=== PATIENT | female | born 1995 | race Caucasian/White ===

== ENCOUNTER 2017-05-23 09:11 | Inpatient (IN) | payer BC ==
[2017-05-23] VITALS (16 sets, daily range): BP systolic 109–144; BP diastolic 66–84; PULSE 61–96; TEMP 36.4–37.1; O2SAT 96–100; Ht 170.2 cm; Wt 68.0 kg
[~2017-05-23] VITALS: Ht 170.2 cm; Wt 68.0 kg
[~2017-05-23 09:11] MED LIST: CEFAZOLIN 2000 MG/60 ML D5W 60 ML IV SCH
[2017-05-23] MEDS ORDERED: BCPILLS PO (09:42)
--- NOTE | 2017-05-23 10:03 | EMERGENCY ROOM VISIT NOTE ---
History Report prepared by Jyoti: Tameka Banks Under the Supervision of: Dr. Nino Boss M.D. First contact with patient: 09:31 Chief Complaint: LEG PAIN,LEG INJURY Stated Complaint: LEG/FOOT PAIN History of Present Illness The patient is a 21 year old white female with no past medical history who presents to the ED with a cc of leg pain beginning one hour prior. Patient states that she was riding on her pretty poor she fell forward with her leg going forward and her left ankle and foot going backward. Patient denies striking her head. Patient denies any LOC. Patient denies any numbness tingling or weakness. Patient is not taking blood thinning medications. She does not have any other focal complaints of the head neck chest back abdomen arms or right lower extremity. Source of History: patient Onset: an hour ago Position: leg Quality: other (episode) Timing: constant Associated Symptoms: No LOC, No neck pain, No back pain, No weakness, No numbness Review of Systems See HPI for pertinent positives and negatives. A total of ten systems were reviewed and were otherwise negative. Past Medical & Surgical Medical Problems: (1) Closed fracture of distal end of left fibula and tibia Family History no pertinent family history stated. Social History Smoking Status: Never Smoker Smokeless Tobacco Use: No Alcohol Use: none Drug Use: none Marital Status: single Housing Status: lives with family Current/Historical Medications Scheduled Control Pills ( Control Pills), 1 TAB PO DAILY Allergies Coded Allergies: No Known Allergies (Unverified , 05/23/17) Physical Exam Vital Signs Date Time Temp Pulse Resp B/P (MAP) Pulse Ox O2 Delivery O2 Flow Rate FiO2 05/23/17 11:38 96 18 122/78 100 Nasal Cannula 2.0 05/23/17 11:12 37.0 67 20 128/71 100 Room Air 05/23/17 11:10 76 05/23/17 10:30 71 18 118/65 100 Room Air 05/23/17 09:20 36.8 92 18 109/92 98 Room Air Physical Exam GENERAL: Awake, alert, well-appearing, NAD HENT: Normocephalic, atraumatic. EYES: Normal conjunctiva. Sclera non-icteric. NECK: Supple. No nuchal rigidity. FROM. RESPIRATORY: CTAB, no rhonchi, wheezing, crackles CARDIAC: RRR, no MRG ABDOMEN: Soft, NTND, BS+ MSK: No chest wall TTP, noticeable left lower extremity edema with tenderness to palpation, neurovascularly intact distally to DP, SP, tibialis nerves, 2+ DP pulse intact of left lower extremity NEURO: GCS 15, CN 2-12 intact, moves all 4s on command SKIN: No rash or jaundice noted. Medical Decision & Procedures ER Provider Diagnostic Interpretation: Radiology results as stated below per my review and radiologist interpretation: LEFT TIBIA AND FIBULA 2 VIEWS; LEFT ANKLE 2 VIEWS CLINICAL HISTORY: Fall with left leg injury and deformity. FINDINGS: AP and lateral views of the left tibia and fibula with AP and lateral views of the left ankle are obtained. No prior studies are available for comparison at the time of dictation. The skeletal structures are well mineralized. There is a comminuted and distracted spiral fracture of the proximal fibular shaft. There is mild anterior and lateral distraction of the distal fragment which is offset by up to 7 mm. There is minimal overriding of the fragments. The distal fibula is intact. There is a comminuted and distracted spiral fracture through the distal tibial shaft. There is lateral distraction of the distal fragment by at least 11 mm, as well as minimal anterior distraction. There is at least 1.5 cm of overriding of the fragments. Soft tissue edema overlies the fractures. The knee and ankle joints appear maintained. The ankle mortise is intact. No ankle joint effusion is identified. IMPRESSION: 1. Distracted fractures of the proximal fibular and distal tibial shafts as above with overlying soft tissue edema. 2. The knee and ankle joints appear maintained. Electronically signed by: Kevin Reed M.D. Laboratory Results 05/23/17 10:15 Red Blood Count 4.59, Mean Corpuscular Volume 84.7, Mean Corpuscular Hemoglobin 27.9, Mean Corpuscular Hemoglobin Concent 32.9, Mean Platelet Volume 11.0, Neutrophils (%) (Auto) 70.7, Lymphocytes (%) (Auto) 22.8, Monocytes (%) (Auto) 5.0, Eosinophils (%) (Auto) 1.2, Basophils (%) (Auto) 0.2, Neutrophils # (Auto) 6.67, Lymphocytes # (Auto) 2.15, Monocytes # (Auto) 0.47, Eosinophils # (Auto) 0.11, Basophils # (Auto) 0.02 05/23/17 10:15 Test 05/23/17 10:15 White Blood Count 9.43 K/uL (4.8-10.8) Red Blood Count 4.59 M/uL (4.2-5.4) Hemoglobin 12.8 g/dL (12.0-16.0) Hematocrit 38.9 % (37-47) Mean Corpuscular Volume 84.7 fL (80-100) Mean Corpuscular Hemoglobin 27.9 pg (25-34) Mean Corpuscular Hemoglobin Concent 32.9 g/dl (32-36) Platelet Count 234 K/uL (130-400) Mean Platelet Volume 11.0 fL (7.4-10.4) Neutrophils (%) (Auto) 70.7 % Lymphocytes (%) (Auto) 22.8 % Monocytes (%) (Auto) 5.0 % Eosinophils (%) (Auto) 1.2 % Basophils (%) (Auto) 0.2 % Neutrophils # (Auto) 6.67 K/uL (1.4-6.5) Lymphocytes # (Auto) 2.15 K/uL (1.2-3.4) Monocytes # (Auto) 0.47 K/uL (0.11-0.59) Eosinophils # (Auto) 0.11 K/uL (0-0.5) Basophils # (Auto) 0.02 K/uL (0-0.2) RDW Standard Deviation 43.6 fL (36.4-46.3) RDW Coefficient of Variation 14.1 % (11.5-14.5) Immature Granulocyte % (Auto) 0.1 % Immature Granulocyte # (Auto) 0.01 K/uL (0.00-0.02) Prothrombin Time 10.6 SECONDS (9.0-12.0) Prothromb Time International Ratio 1.0 (0.9-1.1) Activated Partial Thromboplast Time 27.7 SECONDS (21.0-31.0) Partial Thromboplastin Ratio 1.1 Anion Gap 9.0 mmol/L (3-11) Est Creatinine Clear Calc Drug Dose 108.7 ml/min Estimated GFR () 122.0 Estimated GFR (Non- 105.3 BUN/Creatinine Ratio 11.5 (10-20) Calcium Level 9.1 mg/dl (8.5-10.1) Human Chorionic Gonadotropin, Qual NEG (NEG) Laboratory results reviewed by me Medications Administered Medications (Trade) Dose Ordered Sig/Franky Route Start Time Stop Time Status Last Admin Dose Admin Morphine Sulfate (MoRPHine SULFATE INJ) 4 mg NOW STAT IV 05/23/17 10:08 05/23/17 10:10 DC 05/23/17 10:16 4 MG Sodium Chloride 500 ml @ 999 mls/hr Q31M STAT IV 05/23/17 10:08 05/23/17 10:38 DC 05/23/17 10:15 999 MLS/HR Ondansetron HCl (Zofran Inj) 4 mg NOW STAT IV 05/23/17 10:08 05/23/17 10:10 DC 05/23/17 10:15 4 MG Procedure Procedural Sedation Indication fracture. Total time: 16 minutes. Written consent was obtained after the risks and benefits were explained to the patient, including, but not limited to aspiration, allergic reaction, breathing difficulties, cardiac complications, vomiting, pain, event recall, bleeding, and /or infection. Pre-sedation examination and paperwork completed. The patient was on 100% oxygen via NRB prior to the procedure. Continous end tidal CO2 monitoring, pulse oximetry, and cardiac monitoring were utilized. Suction, airway equipment, medications, respiratory equipment, and appropriate personnel were prepared prior to the initiation of the procedure. A time out was taken. Sedation was achieved utilizing 65 mg of Ketamine and 35 mg of Propofol. After I observed the patient had reached the appropriate level of sedation the main procedure was performed without complication. Sedation was discontinued and the monitoring continued. The patient recovered quickly from the effects of the medication without complication or adverse event. ED Course 1000: The patient was evaluated in room A10. A complete history and physical exam was performed. 1041: Discussed the patient's case with Dr. Apodaca- Orthopedics. The patient will be evaluated for further treatment and disposition. 1150: Procedural sedation using 65 mg Ketamine and 35 mg of Propofol. 1200: The patient is going to OR will be evaluated for further management. Medical Decision I considered frx, sprain, strain, tendinopathy, tendonitis. Patient was seen and evaluated the bedside. Patient suffered a fall off of her Pedi board. No blood thinners neurovascularly intact. Patient does have a notable tib-fib fracture. Patient was given pain medication. Patient's blood work was fairly unremarkable. Patient was noted to have a spiral fracture was comminuted and distracted of the left tibia and did have a proximal fibular fracture. I spoke with orthopedics recommended operative fixation. Patient was made nothing by mouth. Patient did have a procedural sedation that was completed with success and the patient tolerated the procedure well. During this time the orthopedist was able to place the left lower extremity and trilaminar splint. Patient was subsequently admitted to the orthopedic service and pending operating room around 3 PM. Medication Reconcilliation Current Medication List: was personally reviewed by me Blood Pressure Screening Patient's blood pressure: Normal blood pressure Consults Time Called: 1037 Consulting Physician: Dr. Frazier- Orthopedics Returned Call: 1041 Discussed the patient's case. He will come and evaluate the patient. Impression Primary Impression: Leg pain, left Additional Impression: Tibia/fibula fracture Scribe Attestation The scribe's documentation has been prepared under my direction and personally reviewed by me in its entirety. I confirm that the note above accurately reflects all work, treatment, procedures, and medical decision making performed by me. Departure Information Dispostion Being Evaluated By Surgeon Patient Instructions My [facility] [address] Problem Qualifiers Additional Impression: Tibia/fibula fracture Encounter type: initial encounter Fracture type: closed Laterality: left Qualified Codes: S82.202A - Unspecified fracture of shaft of left tibia, initial encounter for closed fracture; S82.402A - Unspecified fracture of shaft of left fibula, initial encounter for closed fracture
[2017-05-23] MEDS ORDERED: MoRPHine SULFATE 4 MG/ML 1 ML CARP\\VIAL IV STA (10:08)
[2017-05-23] MEDS ORDERED: SODIUM CHLORIDE 0.9% 500ML 500 ML IV STA (10:08)
[2017-05-23] MEDS ORDERED: ONDANSETRON INJ 2 MG/ML 2 ML VIAL IV STA (10:08)
--- NOTE | 2017-05-23 10:16 | DIAGNOSTIC IMAGING REPORT ---
LEFT TIBIA AND FIBULA 2 VIEWS; LEFT ANKLE 2 VIEWS CLINICAL HISTORY: Fall with left leg injury and deformity. FINDINGS: AP and lateral views of the left tibia and fibula with AP and lateral views of the left ankle are obtained. No prior studies are available for comparison at the time of dictation. The skeletal structures are well mineralized. There is a comminuted and distracted spiral fracture of the proximal fibular shaft. There is mild anterior and lateral distraction of the distal fragment which is offset by up to 7 mm. There is minimal overriding of the fragments. The distal fibula is intact. There is a comminuted and distracted spiral fracture through the distal tibial shaft. There is lateral distraction of the distal fragment by at least 11 mm, as well as minimal anterior distraction. There is at least 1.5 cm of overriding of the fragments. Soft tissue edema overlies the fractures. The knee and ankle joints appear maintained. The ankle mortise is intact. No ankle joint effusion is identified. IMPRESSION: 1. Distracted fractures of the proximal fibular and distal tibial shafts as above with overlying soft tissue edema. 2. The knee and ankle joints appear maintained. Electronically signed by: Kevin Reed M.D. 05/23/2017 10:15 AM Dictated Date/Time: 05/23/2017 10:12 AM
[2017-05-23 10:28] LABS: BASO % 0.2 %; BASO ABS # 0.02 K/uL (0-0.2); COMPLETE YES; EOS % 1.2 %; HEMATOCRIT 38.9 % (37-47); IG% 0.1 %; LYMPH % 22.8 %; LYMPH ABS # 2.15 K/uL (1.2-3.4); MEAN CELL VOLUME 84.7 fL (80-100); MEAN CORPUSCULAR HEMOGLOBIN 27.9 pg (25-34); MEAN CORPUSCULAR HGB CONC 32.9 g/dl (32-36); NEUT % 70.7 %; PLATELET COUNT 234 K/uL (130-400); RED BLOOD COUNT 4.59 M/uL (4.2-5.4); WHITE BLOOD COUNT 9.43 K/uL (4.8-10.8)
[2017-05-23 10:39] LABS: PARTIAL THROMBOPLASTIN RATIO 1.1; PROTHROMBIN TIME (PATIENT) 10.6 SECONDS (9.0-12.0)
[2017-05-23 10:51] LABS: BUN/CREATININE RATIO 11.5 (10-20); CALCIUM 9.1 mg/dl (8.5-10.1); CREATININE 0.81 mg/dl (0.60-1.20); POTASSIUM 3.3 mmol/L (3.5-5.1)
[2017-05-23 10:52] LABS: PREG INTERNAL NEGATIVE QC NEG CLEAR BACKGROUND; PREG INTERNAL POSITIVE QC POS CONTROL LINE
[2017-05-23] MEDS ORDERED: KETAMINE HCL INJ 50 MG/ML 10 ML VIAL ONE (11:13)
[2017-05-23] MEDS ORDERED: PROPOFOL IV EMULSION 10 MG/ML 20 ML VIAL IV ONE ×2 (11:13→15:57)
[2017-05-23] MEDS ORDERED: SODIUM CHLORIDE 0.9% 1000ML 1,000 ML IV SCH (11:28)
--- NOTE | 2017-05-23 11:28 | History and Physical ---
History & Physical Date May 23, 2017. Chief Complaint Left lower leg pain / fracture History of Present Illness The patient is a 21 year old female with complaints of left lower leg pain after wrecking while riding her skateboard this AM. Patient state that she is unable to move her lower leg due to pain elicited and has not been able to attempt weight bearing since the accident. Patient denies CP, SOB, N/V/D/C, fever, chills, sweats, lethargy, visual disturbance, LOC, head trauma/pain, neck pain or pain in any other areas. Patient is currently wearing a splint on her Right wrist from a previous sprain. Past Medical/Surgical History Surgical History: 1. Bilateral myringotomy 2. Facial surgery 3. Bone anchored hearing aid placement and removal Additional History Hepatic Disease: No Endocrine Disorder: No Kidney Disease: No Hypertension: No Heart Disease: No Bleeding Tendencies: No Infectious Diseases: No Allergies Coded Allergies: No Known Allergies (Unverified , 05/23/17) Home Medications Scheduled Control Pills ( Control Pills), 1 TAB PO DAILY Physical Examination Skin: warm/dry, no rash Eyes: normal inspection, EOMI, sclerae normal ENT: normal ENT inspection, pharynx normal Head: normocephalic, atraumatic Neck: supple, trachea midline Respiratory/Chest: lungs clear, normal breath sounds, no respiratory distress Cardiovascular: regular rate, rhythm, no murmur Abdomen / GI: normal bowel sounds Extremities: + pertinent finding (Moderate edema and ecchymosis to distal 1/3 of Left lower leg with tenderness to palpation. Also moderate tenderness to lateral aspect of lower leg just distal to knee joint. Very limited ROM at knee , ankle and foot due to pain elicited. Left calf soft and supple. No tenderss over achilles, peroneal or posterior tibial tendons. + pain elicited with resisted flex/ext at IP and MTP of left great toe. Otherwise patient is N/V intact in left LE with easily palpable periph pulses and cap refill < 2 sec.) Neurologic/Psych: no motor/sensory deficits, alert, oriented x 3 Diagnosis 1. Displaced left distal tibia fracture 2. Non-displaced left proximal fibula fracture ASA Classification: ASA Class I Plan of Treatment Conscious sedation in ED for closed reduction and splinting of left distal tibia /fibula fracture. Will proceed with Open Reduction Internal Fixation of Left distal tibia fracture this afternoon. Surgery will most likely be inpatient in nature. Risks and complications of surgery such as: infection, bleeding, pain, scarring, nerve and blood vessel damage, weakness, wound problems, stiffness, incomplete relief of symptoms, heart attach, stroke, , blood clots, embolism, malunion, nonunion and arthritis; were discussed with patient by Dr. Frazier. She understood and agreed, signing consent for surgery.
--- NOTE | 2017-05-23 12:10 | DIAGNOSTIC IMAGING REPORT ---
RIGHT ANKLE 2 VIEWS CLINICAL HISTORY: Fracture COMPARISON STUDY: 05/23/2017 FINDINGS: 2 intraoperative fluoroscopic spot images are provided for interpretation. There is a limited [id number]. There is an overlying cast. There is a spiral fracture of the distal tibial shaft, demonstrating slightly less than one quarter shaft width of lateral displacement. IMPRESSION: Spiral fracture of the distal tibia status post reduction Electronically signed by: Cuong Muñoz M.D. 05/23/2017 12:09 PM Dictated Date/Time: 05/23/2017 12:07 PM
[2017-05-23] MEDS ORDERED: NURSING VERBAL MED ORDER ONE ×3 (15:15→20:30)
[2017-05-23] MEDS ORDERED: MoRPHine SULFATE 4 MG/ML 1 ML CARP\\VIAL ONE ×3 (15:19→20:41)
[2017-05-23] MEDS ORDERED: MoRPHine SULFATE 4 MG/ML 1 ML CARP\\VIAL IV PRN (15:30)
[2017-05-23] MEDS ORDERED: MoRPHine SULFATE 2 MG/ML CARP IV PRN ×2 (15:30→19:45)
[2017-05-23] MEDS ORDERED: MIDAZOLAM HCL 1 MG/ML 2ML VIAL ONE (15:57)
[2017-05-23] MEDS ORDERED: ONDANSETRON INJ 2 MG/ML 2 ML VIAL ONE ×2 (15:57→19:11)
[2017-05-23] MEDS ORDERED: LIDOCAINE HCL 2% 2 ML VIAL (20MG/ML) ONE (15:57)
[2017-05-23] MEDS ORDERED: DEXAMETHASONE SOD INJ 4 MG/ML VIAL ONE (15:57)
[2017-05-23] MEDS ORDERED: FENTANYL CITRATE INJ 50 MCG/1 ML 2 ML VIAL ONE ×5 (15:58→19:20)
[2017-05-23] MEDS ORDERED: EpHEDrine SULFATE INJ 50 MG/ML AMP IV PRN (17:15)
[2017-05-23] MEDS ORDERED: ATROPINE SULFATE 0.1 MG/ML 5ML SYR IV PRN (17:15)
[2017-05-23] MEDS ORDERED: ONDANSETRON INJ 2 MG/ML 2 ML VIAL IV PRN ×2 (17:15→19:45)
[2017-05-23] MEDS ORDERED: PHENYLEPHRINE 100MCG/ML 5ML SYR IV PRN (17:15)
--- NOTE | 2017-05-23 19:34 | [facility] Post Operative Brief Note ---
Immediate Operative Summary Operative Date May 23, 2017. Pre-Operative Diagnosis Displaced Left Distal Tibia Fracture & Non-Displaced Left proximal Fibula Fracture Post-Operative Diagnosis Displaced Left Distal Tibia Fracture & Non-Displaced Left proximal Fibula Fracture Procedure(s) Performed Left Open Reduction Internal Fixation Tibia / Fibula Fracture, Intramedullary Nail Surgeon Dr. Frazier Geoscientist Surgeon(s) Davon Lau PA-C Estimated Blood Loss 50cc Findings Intra-articular extension of fracture into the ankle joint stabilized with a 3.5 mm cortical front to back lag screw. Fracture reduced and stabilized with a 9 x 330 mm titanium intramedullary nail with 2 proximal and 2 distal crosslocking screws. Fluids (cc crystalloids) 1300 Specimens None Drains None Anesthesia General Complication(s) None Disposition Recovery Room / PACU
[2017-05-23] MEDS ORDERED: METOCLOPRAMIDE HCL INJ 5 MG/ML 2 ML VIAL IV PRN (19:45)
[2017-05-23] MEDS: HYDROmorphone INJ 1 MG/ML SYR IV PRN ×6 (19:45→20:12)
[2017-05-23] MEDS ORDERED: NO NSAIDS SCH (19:45)
[2017-05-23] MEDS ORDERED: ALUMINUM/MAGNESIUM/SIMETH (MAALOX MAX) 30 ML UDC PO PRN (19:45)
--- NOTE | 2017-05-23 19:53 | [facility] Operative Report ---
Operative Report Operative Date May 23, 2017. Pre-Operative Diagnosis Displaced Left Distal Tibia Fracture & Non-Displaced Left proximal Fibula Fracture Post-Operative Diagnosis Displaced Left Distal Tibia Fracture & Non-Displaced Left proximal Fibula Fracture Procedure(s) Performed Left Open Reduction Internal Fixation Tibia / Fibula Fracture, Intramedullary Nail Surgeon Dr. Frazier Vacuum Frame Operator Surgeon(s) Davon Lau PA-C Estimated Blood Loss 50cc Findings same Fluids 1300 Specimens None Drains None Anesthesia General Complication(s) None Disposition Recovery Room / PACU Indications sustained injury to left lower extremity, xrays obtained, surgery recommended, consents signed Description of Procedure taken to the OR, prepped and draped, I was present the entire case, please see Dr. Frazier's op note for further detail. I attest to the content of the Intraoperative Record and any orders documented therein. Any exceptions are noted below.
--- NOTE | 2017-05-23 20:21 | Anesthesiology Progress Note ---
Anesthesia Post Op Note Date & Time May 23, 2017 at 20:21 Vital Signs Vital Signs Past 12 Hours Date Time Temp Pulse Resp B/P (MAP) Pulse Ox O2 Delivery O2 Flow Rate FiO2 05/23/17 19:39 36.4 108 18 135/92 100 Oxymask 10 05/23/17 15:30 Room Air 05/23/17 15:19 37.1 71 18 112/73 (86) 99 Room Air 05/23/17 12:15 36.8 79 18 111/78 99 Room Air 05/23/17 12:10 36.8 83 18 136/79 98 Room Air 05/23/17 12:05 36.7 80 18 144/79 98 Room Air 05/23/17 12:00 36.8 83 18 132/83 100 Room Air 05/23/17 11:55 36.8 66 18 132/83 100 Room Air 05/23/17 11:51 100 Nasal Cannula 2.0 05/23/17 11:50 70 18 125/75 100 Nasal Cannula 2.0 05/23/17 11:45 93 18 137/84 100 Nasal Cannula 2.0 05/23/17 11:40 94 18 133/73 100 Nasal Cannula 2.0 05/23/17 11:38 96 18 122/78 100 Nasal Cannula 2.0 05/23/17 11:12 37.0 67 20 128/71 100 Room Air 05/23/17 11:10 76 05/23/17 10:30 71 18 118/65 100 Room Air 05/23/17 09:20 36.8 92 18 109/92 98 Room Air Notes Mental Status: alert / awake / arousable, participated in evaluation Pt Amnestic to Procedure: Yes Nausea / Vomiting: adequately controlled Pain: adequately controlled Airway Patency, RR, SpO2: stable & adequate BP & HR: stable & adequate Hydration State: stable & adequate Anesthetic Complications: no major complications apparent
--- NOTE | 2017-05-23 20:45 | OPERATIVE REPORT ---
DATE OF OPERATION: 05/23/2017 PREOPERATIVE DIAGNOSIS: Closed left tib-fib fracture. POSTOPERATIVE DIAGNOSIS: Same with extension into the ankle joint. OPERATION PERFORMED: 1. Intramedullary nailing of left tib-fib fracture. 2. Stabilization of posterior malleolus fracture. IMPLANTS: 1. Synthes 9 x 330 mm titanium intramedullary nail with 4 cross-locking screws. 2. One titanium 3.5 mm cortical screw. ESTIMATED BLOOD LOSS: 50 mL IV FLUIDS: 1300 mL of crystalloid. SURGEON: Larry Frazier MD. CAPSULE MAKER: Davon Lau PA-C. INDICATIONS: Ms. 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 The fracture was displaced. She was neurovascularly intact. There was some question on her preoperative x-rays whether the fracture extended into the ankle joint but it was not definitively clear. Long discussion was had with the patient and her mother about the risks and benefits of surgery, alternatives to surgery and expected outcomes. After reviewing all these, she elected to proceed with surgery. All questions were answered. Informed consent was signed. OPERATIVE FINDINGS: Careful examination of the fluoroscopic views of the ankle revealed extension of the fracture into the ankle joint with a posterior malleolar component. This was nondisplaced. A single front to back 3.5 mm cortical screw was used to prevent displacement of the fracture, which was placed just medial to the nail. A 9 mm titanium nail was used to stabilize the fracture with 2 cross-locking screws proximally and distally all in static fashion. DESCRIPTION OF THE OPERATION: The patient was identified in the preoperative holding area where her surgical site was marked. She was brought to the main operating room where general anesthesia was administered. She was moved onto the operating room table. All bony prominences were padded. Perioperative antibiotics were administered. She was prepped and draped in the normal sterile fashion. Prior to incision, a multidisciplinary timeout was called. All in the room were in agreement. We began by visualizing the fracture under fluoroscopy. The posterior malleolus fracture was noted. We localized the tibia fracture under fluoro, then made 2 small stab incisions and placed a pointed tenaculum clamp across the fracture which was used to reduce and hold the fracture in a reduced position. Next, a 6 cm incision was made along the medial border of the patellar tendon. We dissected down through subcutaneous tissues to the level of the fascia. Fascia was incised just medial to the patellar tendon all the way up onto the patella and distally in line with the incision. The leg was placed under the triangle. The pointed awl was used to get our start point. This was verified on the AP and lateral fluoroscopic views. A guidewire was then drilled into the proximal tibia. The opening reamer was used followed by the guidewire. The guidewire was advanced down through the intramedullary canal all the way to the physeal scar of the ankle, again with fluoroscopic guidance to end it in the center-center position. Once her guidewire was in position, we then placed a front to back lag screw medial to the guidewire to stabilize the posterior malleolus fracture and prevent displacement with reaming and placement of the nail. Excellent fixation was obtained with this screw. Next, intramedullary canal was sequentially reamed starting with a 7.[address] the way up to a size 11. At this point, we had good chatter from the cortices. Rather than ream up farther and weaken the cortical bone, I decided to place a 9 mm nail. We measured the length of the nail and it was a 330 mm nail. The nail was then opened up and impacted down over the guidewire, easily crossing the fracture without difficulty. The nail was then fixated distally with 2 medial to lateral cross-locking screws placed using the perfect circles technique. I then backslapped the fracture to slightly compress it. Two proximal cross-locking screws were then placed using the outrigger guide. The first cross-lock screw was bicortical whereas the second was unicortical to avoid the proximal tib-fib joint. At this point, the outrigger was removed and a 10 mm endcap was placed. Our final fluoroscopic images were obtained. We were happy with the reductions of our tibia and fibula fractures, the length of the nail, and the reduction of the ankle joint. The wounds were closed in layers with 0 Vicryl for the deep fascial layer, 3-0 Vicryl for the deep dermis and 3-0 nylon for the skin. Xeroforms were placed, followed by 4 x 4's, sterile cast padding and a posterior and U plaster slab splint. This was gently molded and held with the ankle in neutral position until the plaster dried. The patient was then awoken from anesthesia and transferred to the recovery room in stable condition. POSTOPERATIVE COURSE: The patient will be readmitted to the floor. She will elevate her leg. She will be on aspirin for DVT prophylaxis. She will be nonweightbearing for a minimum of 4 weeks after surgery due to the intraarticular extension of the fracture. I attest to the content of the Intraoperative Record and any orders documented therein. Any exceptions are noted below. MTDD
[2017-05-23] MEDS: OXYCODONE HCL 10 MG TABCR (OXYCONTIN) PO SCH (21:00)
[2017-05-23] MEDS: D5W AND 1/2NSS + 20MEQ KCL 1,000 ML IV SCH (21:02)
[2017-05-23] MEDS: MoRPHine SULFATE 2 MG/ML CARP IV PRN (21:18)
[2017-05-23] MEDS: ASPIRIN 81 MG ECTAB PO SCH (21:39)
[2017-05-23] MEDS: DOCUSATE SODIUM 100 MG CAP PO SCH (21:40)
--- NOTE | 2017-05-23 23:30 | DIAGNOSTIC IMAGING REPORT ---
L TIBIA/FIBULA 2 VIEWS ROUTINE HISTORY: 21 years-old Female ORIF TIB/FIB ORIF of distal tibial fracture COMPARISON: Left ankle radiographs of same day TECHNIQUE: 6 spot fluoroscopic images of the left tibia and fibula were obtained utilizing 282.9 seconds of fluoroscopy time. FINDINGS: There has been interval ORIF of the spiral comminuted displaced distal tibial shaft fracture. Images show placement of an intramedullary maykel within the tibia with 2 proximal and 2 distal cannulated screws. Additionally, there is a fifth cannulated screw which projects anterior to posterior within the distal tibia. There is improved alignment of the spiral comminuted distal tibial fracture. IMPRESSION: Status post ORIF of the tibia as above with improved alignment. The above report was generated using voice recognition software. It may contain grammatical, syntax or spelling errors. Electronically signed by: Koko Cabrera M.D. 05/23/2017 11:29 PM Dictated Date/Time: 05/23/2017 11:27 PM
[2017-05-24] VITALS: BP 105/63; PULSE 86; TEMP 36.8; O2SAT 99
[2017-05-24] MEDS: OXYCODONE/ACETAMINOPHEN 5-325 TAB PO PRN ×3 (00:27→12:16)
[2017-05-24] MEDS: CEFAZOLIN IV 2,000 MG in DEXTROSE 5% 50ML 50 ML IV SCH ×2 (00:27→08:40)
[2017-05-24] MEDS: MoRPHine SULFATE 2 MG/ML CARP IV PRN ×2 (02:26→03:25)
[2017-05-24 03:27] VITALS: BP 118/69; PULSE 80; TEMP 36.9; O2SAT 99
[2017-05-24] MEDS: D5W AND 1/2NSS + 20MEQ KCL 1,000 ML IV SCH (06:18)
[2017-05-24 07:22] VITALS: BP 105/68; PULSE 69; TEMP 37.1; O2SAT 100
[2017-05-24] MEDS ORDERED: OXYSR10 PO (07:53)
[2017-05-24] MEDS ORDERED: OXYC-57 PO (07:53)
[2017-05-24] MEDS ORDERED: ASPEC81 PO (07:53)
--- NOTE | 2017-05-24 08:00 | Discharge Instructions ---
Discharge Instructions Date of Service May 24, 2017. Admission Reason for Admission: Closed Fracture Of Distal End Of Left Fibula And Discharge Discharge Diagnosis / Problem: s/p ORIF left tibia/fibula fractures Discharge Goals Goal(s): Decrease discomfort, Improve function, Increase independence Activity Recommendations Activity Limitations: as noted below Lifting Limitations: until after follow-up appointment Exercise/Sports Limitations: until after follow-up appointment Shower/Bathe: keep incision dry Driving or Machine Use: when cleared by Dr. Frazier Weightbearing Status: Left non-weightbearing . Instructions / Follow-Up Instructions / Follow-Up DIET: * Resume previous diet. MEDICATIONS: * Please take your prescriptions as instructed at your pre-op appointment and/ or see medication discharge instructions listed above. * If concerns develop, call your physician's office at . SPECIAL CARE INSTRUCTIONS: * Ice/Elevate as instructed. * Keep dressing clean, dry, intact. * Your surgical extremity may be discolored due to prepping agents used on the skin. A bluish-green tint is a normal variant and should not cause alarm. Call your doctor at [phone] if: * Temperature above 101 degrees * Pain not relieved by pain medicine ordered * There is increased drainage or redness from any incision * You have any unanswered questions, problems or concerns. FOLLOW UP VISIT: * If not already scheduled, please call the office at to schedule a follow-up appointment. Current Hospital Diet Patient's current hospital diet: Regular Diet Discharge Diet Recommended Diet: Regular Diet Procedures Procedures Performed: Left Open Reduction Internal Fixation Tibia / Fibula Fracture, Intramedullary Nail Pending Studies Studies pending at discharge: no Medical Emergencies . Who to Call and When: Medical Emergencies: If at any time you feel your situation is an emergency, please call 911 immediately. . Non-Emergent Contact Non-Emergency issues call your: Primary Care Provider . "Provider Documentation" section prepared by Davon Lau. . VTE Core Measure Inpt VTE Proph given/why not?: [facility] [place] Drug Monitoring Program Search Results: no issues identified
--- NOTE | 2017-05-24 08:09 | Discharge Summary ---
Orthopedic Discharge Summary Admission Date/Reason May 23, 2017 at 11:39 Closed Fracture Of Distal End Of Left Fibula And. Discharge Date/Disposition May 24, 2017 Home Diagnosis Principal Diagnosis: Left tibia/fibula fractures Secondary Diagnoses/Problems: s/p ORIF left tibia fracture Procedure(s) Performed ORIF left tibia fracture 05/23/17 Dr. Larry Frazier, [facility] Medication Reconciliation New Medications: Aspirin (Aspirin EC Low Dose) 81 Mg Ectab 81 MG PO BID for 42 Days Oxycodone HCl (Oxycontin) 10 Mg Tabcr 10 MG PO Q12 PRN for Pain, #10 Oxycodone/Acetaminophen 5MG/325MG (Percocet 5MG/325MG) Tab 1-2 TAB PO Q4H PRN for Pain for 3 Days, #36 TAB PAIN Discontinued Medications: Control Pills ( Control Pills) Tab 1 TAB PO DAILY, TAB Admission Physical Exam As per Admitting History & Physical. Hospital Course 21 y/o female sustained injury to left lower extremity. Xrays obtained and surgery recommended. Consents obtained by Dr. Frazier. She tolerated the procedure well and after 24 hours of admission was able to discharged home with outpatient services. Discharge Instructions Please refer to the electronic Patient Visit Report (Discharge Instructions) for additional information.
[2017-05-24] MEDS: DOCUSATE SODIUM 100 MG CAP PO SCH (08:50)
[2017-05-24] MEDS: ASPIRIN 81 MG ECTAB PO SCH (08:51)
[2017-05-24] MEDS: OXYCODONE HCL 10 MG TABCR (OXYCONTIN) PO SCH (08:52)
--- NOTE | 2017-05-24 09:54 | Anesthesiology Progress Note ---
Anesthesia Post Op Note Date & Time May 24, 2017 at 09:53 Vital Signs Vital Signs Past 12 Hours Date Time Temp Pulse Resp B/P (MAP) Pulse Ox O2 Delivery O2 Flow Rate FiO2 05/24/17 08:25 Room Air 05/24/17 07:22 37.1 69 18 105/68 (80) 100 Room Air 05/24/17 03:27 36.9 80 16 118/69 (85) 99 Room Air 05/24/17 00:32 Room Air 05/24/17 00:00 36.8 86 16 105/63 (77) 99 Room Air 05/23/17 23:06 37.0 73 18 120/73 (89) 100 Room Air 05/23/17 22:14 36.7 78 18 111/72 (85) 99 Room Air Notes Mental Status: alert / awake / arousable, participated in evaluation Pt Amnestic to Procedure: Yes Nausea / Vomiting: adequately controlled Pain: adequately controlled Airway Patency, RR, SpO2: stable & adequate BP & HR: stable & adequate Hydration State: stable & adequate Anesthetic Complications: no major complications apparent
[2017-05-24 11:30] VITALS: BP 100/62; PULSE 62; TEMP 36.8; O2SAT 100
[2017-05-24 13:08] VITALS: BP 100/62; PULSE 62; TEMP 36.8; O2SAT 100
== END 2017-05-24 14:40 | disposition home or self-care (01) | DRG 494 ==
LOC: C.EDA 09:15 → C.MSW 11:39 → ENRESERV 11:53
PROVIDERS: ADMIT Orthopaedic Surgery; ATTEND Orthopaedic Surgery
PROC: 0QSHXZZ Reposition Left Tibia, External Approach (ICD-10-PCS; 2017-05-23)
PROC: 0QSKXZZ Reposition Left Fibula, External Approach (ICD-10-PCS; 2017-05-23)
PROC: 0QSH06Z Reposition Left Tibia with Intramedullary Internal Fixation Device, Open Approach (ICD-10-PCS; principal; 2017-05-23 09:00)
PROC: 0QSH04Z Reposition Left Tibia with Internal Fixation Device, Open Approach (ICD-10-PCS; principal; 2017-05-23 09:00)
PROC: 0QSK06Z Reposition Left Fibula with Intramedullary Internal Fixation Device, Open Approach (ICD-10-PCS; principal; 2017-05-23 09:00)
DX: S82.832A Other fracture of upper and lower end of left fibula, initial encounter for closed fracture (principal); S82.252A Displaced comminuted fracture of shaft of left tibia, initial encounter for closed fracture; S82.392A Other fracture of lower end of left tibia, initial encounter for closed fracture; Y93.51 Activity, roller skating (inline) and skateboarding; Y92.410 Unspecified street and highway as the place of occurrence of the external cause; W17.89XA Other fall from one level to another, initial encounter

== ENCOUNTER → 2017-07-06 | Outpatient (CLI) | payer BC ==
[~2017-07-06] MED LIST changes: +ASPEC81 PO; -CEFAZOLIN 2000 MG/60 ML D5W 60 ML IV SCH; +OXYC-57 PO; +OXYSR10 PO
== END | disposition home or self-care (01) ==
LOC: C.RDSM 11:43
PROVIDERS: ATTEND Orthopaedic Surgery
DX: Z96.7 Presence of other bone and tendon implants (principal)

== ENCOUNTER → 2017-09-06 | Outpatient (CLI) | payer BC | END | disposition home or self-care (01) | LOC: C.RDSM 10:00 | PROVIDERS: ATTEND Orthopaedic Surgery | DX: Z96.7 Presence of other bone and tendon implants (principal) ==